=== PATIENT | male | born 1975 | race Caucasian/White ===

== ENCOUNTER 2017-03-31 16:13 | Emergency (ER) | payer OTHER, SELFPAY ==
[2017-03-31 16:14] VITALS: BP 141/97; PULSE 125; RESP 16; TEMP 37.1; O2SAT 98; BMI 24.9
--- NOTE | 2017-03-31 16:37 | RAD_ITS ---
STUDY: X-RAY - LEFT HAND REASON FOR EXAM: Male, 41 years old. Laceration TECHNIQUE: Three view(s) of the hand. COMPARISON: None. FINDINGS: Bones: There are no acute osseous abnormalities. Joints: The visualized joints are unremarkable. Soft tissues: A discrete soft tissue defect is not visualized. Foreign body: None RAD/Hand Min 3 Views IMPRESSION: There is no evidence of osseous involvement or radiopaque foreign body. Electronically Signed: Lillian Cazares MD at 17:16 EST Tel Direct: [phone], Service support ,
--- NOTE | 2017-03-31 16:39 | ED.DCSUM_ITS ---
- ER Visit Summary Date of Service: 03/31/17 Chief Complaint: [] Right hand laceration after punching car glass window History of Present Illness: The patient is a 41 M [] hdhbq-[id number]-gubkepux tetanus status up-to-date he punched a car glass window suffered laceration to the palm of the right hand, no loss of function no foreign body sensation no other complaints Physical Examination: [] Annual exams unremarkable he indicates he is very sensitive to the site of blood and pain it causes him to pass out he has an obvious curvilinear laceration to the right palmar hand., Approximately 4 cm, finger function and tendon function completely normal sensation normal MCP PIP DIP flexion extension and isolated completely intact all digits thumb function normal, the laceration was copiously irrigated, local anesthetic, no foreign bodies are appreciated, X-rays confirm no signs of obvious foreign body, I could not see any foreign bodies on inspection and the laceration was closed with nylon with good results he was instructed on wound care bulky hand dressing he will follow-up with his primary care doctor or was to orthopedics for further management and return for change in symptoms Test Results: [] Emergency Department Course and Treatment: [] Treatment Plan: [] Disposition: [] Home stable Impression: [] 4 centimeter right hand laceration This note was generated with [employer] dictation software. It may contain incorrect words, spelling, and punctuation that were not noted in review of the chart prior to signing ED Disposition - Plan for ED Patient: Chief Complaint: Laceration Instructions: ED Laceration All, ED Laceration Hand Referrals: Yunior Hayden MD [STAFF PHYSICIAN] - [facility] Doctor,Out of [Primary Care Provider] -
--- NOTE | 2017-03-31 16:39 | ED.DEP ---
ED Disposition - Plan for ED Patient: Chief Complaint: Laceration Instructions: ED Laceration All, ED Laceration Hand Referrals: [facility] Doctor,Out of [Primary Care Provider] - Yunior Hayden MD [STAFF PHYSICIAN] -
--- NOTE | 2017-03-31 16:49 | RAD_ITS ---
STUDY: X-RAY - RIGHT HAND REASON FOR EXAM: Male, 41 years old. Laceration TECHNIQUE: Three view(s) of the hand. COMPARISON: None. FINDINGS: Bones: There are no acute osseous abnormalities. Joints: The visualized joints are unremarkable. Soft tissues: There is a soft tissue defect along the palmar aspect of the hand at the level of the distal second metacarpal. Foreign body: None RAD/Hand Min 3 Views IMPRESSION: There is no evidence of osseous involvement or radiopaque foreign body. Electronically Signed: Lillian Cazares MD at 17:14 EST Tel Direct: [phone], Service support ,
[2017-03-31 17:29] VITALS: PULSE 79; RESP 16; O2SAT 100
--- NOTE | 2017-03-31 17:29 | ED.RN ---
TELFA AND GAUZE WRAP APPLIED TO RIGHT HAND. REVIEWED D/C INSTRUCTIONS, FOLLOW UP CARE, AND S/S THAT WOULD WARRANT A RETURN TO THE ED WITH PT. PT VERBALIZED AN UNDERSTANDING AND DENIES FURTHER QUESTIONS FOR THIS RN. PT SKIN P/W/D, RESP EVEN AND UNLABORED, PT A&O X 3, NO DISTRESS NOTED. PT AMBULATED OUT OF ED, GAIT STEADY.
== END 2017-03-31 17:35 | disposition home or self-care (01) ==
LOC: ED 17:29
PROVIDERS: Emergency Provider Emergency Medicine
DX: S61.411A Laceration without foreign body of right hand, initial encounter (principal); W22.8XXA Striking against or struck by other objects, initial encounter; Y93.89 Activity, other specified; Y92.9 Unspecified place or not applicable
CPT/HCPCS: 12002; 73130; 99283

== ENCOUNTER → 2019-06-21 | Outpatient (CLI) | payer OTHER, SELFPAY | END | disposition home or self-care (01) | LOC: LABSPEC 13:10 | PROVIDERS: Referring Provider Family Medicine; Visit Provider Family Medicine | DX: Z20.828 Contact with and (suspected) exposure to other viral communicable diseases (principal) | CPT/HCPCS: 87635; G2023; U0004 ==

== ENCOUNTER 2023-10-04 06:29 | Day surgery (SDC) | payer OTHER, SELFPAY ==
[2023-10-04] VITALS (8 sets, daily range): BP systolic 112–154; BP diastolic 74–95; PULSE 68–77; RESP 16–20; TEMP 36.4–36.8; O2SAT 95–100; BMI 23.2
[2023-10-04] MEDS: Lactated Ringers 1,000 ML 15 ML IV (06:58)
--- NOTE | 2023-10-04 07:13 | H&P.OPEN ---
HPI - General General Date of Service: 10/04/23 HPI Narrative KEV PITT, is a 48 M who presents for an EGD and colonoscopy. Patient states he has had reflux occasionally for a couple of days on the medication. Patient's has been having a little more looser bowel movements than solid but does have some solid bowel movements. office visit 07/14/23 HPI HPI: 47-year-old male presents for EGD and colonoscopy. Patient states [place] has already approved both and sent the moviprep to him. Patient is never had previous colonoscopy denies any family history of colon cancer. Patient states he has bowel movements daily denies any blood. Patient does state he has reflux 3-4 times a week and does have sounds like Dexilant for the last 1 to 2 years however he only takes it as needed and not daily. Patient's last EGD was in 2015 through the [place]. [facility] Medical History History of tuberculosis Loss of hearing Wears glasses Ambulates with cane Back pain Injury of head and neck Migraine headache Blackout Difficulty chewing History of IBS Gastric reflux Former smoker Hoarseness Anxiety Depression Arthritis Home Medications ?Medication ?Instructions ?Recorded ?Last Taken ?Type bupropion HCl 300 mg 24 hr tablet, 300 mg PO DAILY 03/31/17 Unknown History extended release dextroamphetamine-amphetamine ER 15 mg PO DAILY 03/31/17 Unknown History 15 mg 24hr capsule,extend release (Adderall XR) doxycycline hyclate 100 mg tablet 100 mg PO DAILY 09/06/23 Unknown History omeprazole 20 mg capsule,delayed 20 mg PO BID GERD 09/06/23 Unknown History release sildenafil 50 mg tablet 50 mg PO DAILY PRN sexual activity 09/06/23 Unknown History Allergy/AdvReac Type Severity Reaction Status Date / Time No Known Allergies Allergy Verified 10/04/23 06:46 Surgical History H/O eye surgery H/O foot surgery Social History Smoking Status: Former smoker substance use type: does not use Past Medical/Surgical History Planned Operation Planned Operative Procedure(s): Colonoscopy,EGD Previous Hospitalizations/Surgeries HX Hospitalizations: No Any Problems With Anesthesia: No You/Your Family Experience Fever (Hyperthermia) With Anes: No Cholinesterase deficiency: No Cardiovascular Hx Hypertension: No Respiratory Hx Sleep Apnea: Yes (HAS EXTERNAL DEVICE TO WEAR ON CHEST, DOESN'T WEAR OFTEN) CPAP: No BIPAP: No Hx Respiratory Tract Infection/Cold (presently): No Result (for STOP score): Positive Smoking Status: Former smoker Neurological Does patient have nerve stimulator: No Reproduction : No Psycho/Social Hx Anxiety: Yes (PTSD) Hx Depression: Yes Miscellaneous Recent Exposure to Contagious Disease: No Allergies No Known Allergies Allergy (Verified 10/04/23 06:46) Discharge Is Pt Admitted From a Snf, or a Prison: No Who Could Help: FRIEND After D/C, Where Do you Plan to Go: Return Home Vital Signs Vital Signs Vital Signs: 10/04/23 06:47 10/04/23 06:47 Temperature 97.5 F L Temperature Source Temporal Pulse Rate 77 Respiratory Rate 16 Respiratory Pattern Normal Blood Pressure 154/95 H Blood Pressure Mean 114 Blood Pressure Source Monitor Blood Pressure Position Semi-Fowlers Blood Pressure Location Right Arm Pulse Ox 100 Oxygen Delivery Method Room Air Weight Weight: 176 lb 2.389 oz Body Mass Index (BMI) 23.2 Physical Exam Const alert, oriented x3 and no apparent distress HEENT normocephalic and head/scalp atraumatic Resp normal respiratory effort Cardio regular rate GI soft to palpation and non-tender; Negative for non-distended Palpation: Negative for guarding Extremity no clubbing, cyanosis or edema Skin no rashes or lesions noted Neuro CN's II-XII intact bilaterally Psych mental status grossly normal Assessment & Plan Assessment/Plan (1) GERD (gastroesophageal reflux disease): (2) Encounter for screening colonoscopy: Surgery Risks - Colonoscopy I discussed with the patient the risks of the procedure: Yes Risks Include but are not Limited To: Plan for EGD and colonoscopy Risks include but are not limited to: Bleeding, perforation requiring further surgery, inability to complete colonoscopy requiring barium enema.
--- NOTE | 2023-10-04 07:14 | PCM.PRE.AN2 ---
ASA Classification* ASA Classification ASA Classification: 2 Assessment & Plan Anesthesia* Anesthesia Assessment Anesthesia Assessment: Discussed sedation and/or anesthesia options, risks, benefits, and alternatives with patient/parents/legal guardian/POA. Questions invited. The patient/parents/legal guardian/POA seems to understand and agrees to proceed with anesthesia plan. Reviewed the physical assessment, medical history, allergy history and patient home medications list prior to surgery/procedure/anesthetic and documented any changes. Performed airway and anesthesia risk assessments. 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 When Was Last Pacemaker Check QUESTION #4 FULL TEXT: You/Your Family Experience fever (hyperthermia) with Anesthesia Last Oral Intake Last Oral intake: Last Oral Intake NPO since 23:00 10/04/23 06:47 Meds taken in AM with sips of No 10/04/23 06:47 water? Meds patient instructed to take am of surgery PONV PONV - instructional support technician: PONV - instructional support technician Female No 09/06/23 13:40 HX of Motion Sickness No 09/06/23 13:40 HX of N/V After Surgery No 09/06/23 13:40 Non-Smoker Yes 09/06/23 13:40 Duration of Surgery greater No 09/06/23 13:40 than 60 minutes Number of Risk Factors 1 07/09/24 13:40 PONV Score Low Risk 09/06/23 13:40 Height & Weight Height & Weight: Anesthesia: Height & Weight Height 6 ft 1 in 10/04/23 06:47 Weight: 79.9 kg 10/04/23 06:47 Body Mass Index (BMI) 23.2 10/04/23 06:47 Respiratory Assessment Respiratory Assessment - instructional support technician: Respiratory Tract Infection Hx - instructional support technician Hx Respiratory Tract Infection No 10/04/23 07:14 STOP Sleep Apnea STOP Sleep Apnea - instructional support technician: STOP Sleep Apnea - instructional support technician Hx Hypertension No 10/04/23 07:14 Hx Sleep Apnea Yes: HAS EXTERNAL DEVICE TO 10/04/23 07:14 WEAR ON CHEST, DOESN'T WEAR OFTEN CPAP No 10/04/23 07:14 BIPAP No 10/04/23 07:14 Do you snore loudly (louder than talking or can be heard Do you often feel tired/ fatigued/ sleepy during daytime? Has anyone observed you stop breathing during sleep? STOP Results Positive 10/04/23 07:14 QUESTION #5 FULL TEXT : Do you snore loudly (louder than talking or can be heard through closed doors)? 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 Specify any problems Hx of Preganancy in last 3 N/A 09/06/23 13:40 Months Nurse Filling Out Transfusion & Questions: Date: Time: Patient unable to answer at this time (ie. confused, unrespo /Reproduction History /Reproductive History - instructional support technician: /Reproductive Hx- instructional support technician Hx Now No 10/04/23 07:14 Gestational Age (in weeks): EDC: Hx Hx Para Hx Section SAB No 09/06/23 13:40 Active Medications Active Medications: Current Medications Generic Name Dose Route Start Last Admin Trade Name Freq PRN Reason Stop Dose Admin Lactated Ringer's 1,000 mls @ 15 mls/hr 10/04/23 06:45 10/04/23 06:58 IV 15 mls/hr .Q48H SHAQ Administration PFSH Medical History History of tuberculosis Loss of hearing Wears glasses Ambulates with cane Back pain Injury of head and neck Migraine headache Blackout Difficulty chewing History of IBS Gastric reflux Former smoker Hoarseness Anxiety Depression Arthritis Home Medications ?Medication ?Instructions ?Recorded ?Last Taken ?Type bupropion HCl 300 mg 24 hr tablet, 300 mg PO DAILY 03/31/17 Unknown History extended release dextroamphetamine-amphetamine ER 15 mg PO DAILY 03/31/17 Unknown History 15 mg 24hr capsule,extend release (Adderall XR) doxycycline hyclate 100 mg tablet 100 mg PO DAILY 09/06/23 Unknown History omeprazole 20 mg capsule,delayed 20 mg PO BID GERD 09/06/23 Unknown History release sildenafil 50 mg tablet 50 mg PO DAILY PRN sexual activity 09/06/23 Unknown History Allergy/AdvReac Type Severity Reaction Status Date / Time No Known Allergies Allergy Verified 10/04/23 06:46 Surgical History H/O eye surgery H/O foot surgery Social History Smoking Status: Former smoker substance use type: does not use Review of Systems (Anesthesia) ROS Narrative System reviewed and no additional complaints, except as documented.
--- NOTE | 2023-10-04 07:30 | EGD_PTH ---
PATIENT: KEV PITT LOC: [facility] U#:[id number] AGE/SX: 48/M ROOM: RE10/04/[address]: Dr. Kaylan Gallardo MD : 1975 BED: DIS: 10/04/2023 SPEC #: [id number] RECD: 10/04/23 13:27 STATUS: REMY EVIE #: [id number] ALLI: 10/04/23 07:[address]: Kaylan Gallardo DEPT: SURGICAL PATHOLOGY RECD BY: Amanda Ruiz ENTERED: 10/05/23 07:26 SP TYPE: EGD BIOPSY CRISSY DR: [facility] Tissues: A - Gastric mucous membrane B - Esophagus, NOS Procedures: Special Stain Group I Surgery Specimen Level IV Alcian Blue/PAS (control) HEADER OPERATION: Colonoscopy, EGD PRE-OP DIAGNOSIS: GERD, encounter for screening colonoscopy TISSUE SUBMITTED: A- Antrum biopsy, B- Gastroesophageal junction biopsy MICROSCOPIC DIAGNOSIS A. Gastric antrum, biopsy: Mild chronic gastritis. See comment. B. Gastroesophageal junction, biopsy: Squamous mucosa with focal changes of reflux. No evidence of goblet cell metaplasia. See comment. CATERINA/ 10/06/2023 COMMENT A. The results of immunohistochemistry for Helicobacter pylori will be reported separately ([id number]). B. Alcian blue/PAS stain with matched control supports the above diagnosis. MICROSCOPIC DESCRIPTION Slides are reviewed. GROSS DESCRIPTION A. Received in fixative is one container labeled with the patient's name and designated Antrum biopsy. The specimen consists of one irregular fragment of light quevedo soft tissue that measures 0.5 x 0.3 x 0.1 cm. The specimen is totally submitted in one cassette. B. Received in fixative is one container labeled with the patient's name and designated GE junction biopsy. The specimen consists of one irregular fragment of light quevedo soft tissue that measures 0.3 x 0.3 x 0.1 cm. The specimen is totally submitted in one cassette. TOYA/ 10/05/2023 TC:3 CPT: 67778z5,17395
--- NOTE | 2023-10-04 07:30 | IMM_PTH ---
PATIENT: KEV PITT LOC: [facility] U#:[id number] AGE/SX: 48/M ROOM: RE10/04/[address]: Dr. Kaylan Gallardo MD : 1975 BED: DIS: 10/04/2023 SPEC #: [id number] RECD: 10/05/23 08:56 STATUS: REMY EVIE #: [id number] ALLI: 10/04/23 07:[address]: Kaylan Gallardo DEPT: IMMUNOHISTOCHEMISTRY RECD BY: Johny Figueredo ENTERED: 10/05/23 08:56 SP TYPE: IMMUNO OTHR DR: [facility] Tissues: A - Gastric mucous membrane Procedures: H Pylori (initial) PHYSICIAN & INSTITUTION [place] [id number] SPECIMEN INFORMATION: Tissue Source: A- Antrum biopsy Clinical Info: GERD, encounter for screening colonoscopy Specimen Number: [id number] CPT code: 02922 METHODOLOGY: Deparaffinized sections of prefer/formalin-fixed tissue or PAP/DQ stained slides are incubated with monoclonal/polyclonal antibodies/oligonucleotide probes. Localization is made via biotin free immunoperoxidase method. Appropriate controls are performed and reacted as expected. Results on target cell population are indicated in the following table: RESULTS: ANTIBODY / CLONE RESULT Block A H Pylori (polyclonal) negative These tests were developed and their performance characteristics determined by [facility]. They may not have been cleared or approved by the U.S. Food and Drug Administration. The FDA has determined that such clearance or approval is not necessary. The above immunohistochemical/dualISH markers are ordered and reviewed by the Pathologist. INTERPRETATION: A. Antrum, biopsy: Negative for Helicobacter pylori organisms. CATERINA/ 10/06/2023
--- NOTE | 2023-10-04 07:53 | OP.EGD_ITS ---
Patient Name: Gera Kasper Procedure Date: 10/04/2023 6:46 AM Date of : 1975 Age: 48 Procedure: Upper GI endoscopy Indications: Heartburn Providers: Kaylan Gallardo MD Referring MD: Kaylan Gallardo MD Medicines: Monitored Anesthesia Care Patient Profile: This is a 48 year old male. Complications: No immediate complications. Procedure: Pre-Anesthesia Assessment: - Prior to the procedure, a History and Physical was performed, and patient medications and allergies were reviewed. The patient's tolerance of previous anesthesia was also reviewed. The risks and benefits of the procedure and the sedation options and risks were discussed with the patient. All questions were answered, and informed consent was obtained. Prior Anticoagulants: The patient has taken no anticoagulant or antiplatelet agents. ASA Grade Assessment: Per anesthesia. After reviewing the risks and benefits, the patient was deemed in satisfactory condition to undergo the procedure. After obtaining informed consent, the endoscope was passed under direct vision. Throughout the procedure, the patient's blood pressure, pulse, and oxygen saturations were monitored continuously. The Colonoscope was introduced through the mouth, and advanced to the second part of duodenum. The upper GI endoscopy was accomplished without difficulty. The patient tolerated the procedure well. Scope In: 7:29:16 AM Scope Out: 7:33:36 AM Total Procedure Duration Time 0 hours 4 minutes 20 seconds Findings: The Z-line was irregular and was found 40 cm from the incisors. Biopsies were taken with a cold forceps for histology. Mildly erythematous mucosa without bleeding was found in the gastric antrum. Biopsies were taken with a cold forceps for histology. Biopsies were taken with a cold forceps for Helicobacter pylori cultures. The examined duodenum was normal. The cardia and gastric fundus were normal on retroflexion. Impression: - Z-line irregular, 40 cm from the incisors. Biopsied. - Erythematous mucosa in the antrum. Biopsied. - Normal examined duodenum. Recommendation: - Discharge patient to home. - Resume previous diet. - Continue present medications. - Await pathology results. Procedure Code(s): --- Professional --- 67261, PT, Esophagogastroduodenoscopy, flexible, transoral; with biopsy, single or multiple Diagnosis Code(s): --- Professional --- K22.89, Other specified disease of esophagus K31.89, Other diseases of stomach and duodenum R12, Heartburn CPT copyright 2021 [employer]. All rights reserved. The codes documented in this report are preliminary and upon rn family review may be revised to meet current compliance requirements. MD Kaylan Navas MD 10/04/2023 7:52:48 AM This report has been signed electronically. Number of Addenda: 0 Note Initiated On: 10/04/2023 6:46 AM
--- NOTE | 2023-10-04 07:53 | OP.CCLET_ITS ---
10/04/2023 [facility] Re : Upper GI endoscopy procedure for [facility] This procedure was performed on Wednesday, October 04, 2023. My impressions and recommendations are as follows: Impressions : - Z-line irregular, 40 cm from the incisors. Biopsied. - Erythematous mucosa in the antrum. Biopsied. - Normal examined duodenum. Recommendations : - Discharge patient to home. - Resume previous diet. - Continue present medications. - Await pathology results. My findings are described in the full procedure note, which is enclosed. If I can be of further assistance, please feel free to contact me at Doctor phone number(s): , Work: . Sincerely, MD Kaylan Navas MD 10/04/2023 7:52:48 AM This report has been signed electronically.
--- NOTE | 2023-10-04 07:54 | OP.COLON_ITS ---
Patient Name: Gera Kasper Procedure Date: 10/04/2023 7:33 AM Date of : 1975 Age: 48 Procedure: Colonoscopy Indications: Screening for colorectal malignant neoplasm Providers: Kaylan Gallardo MD Referring MD: Kaylan Gallardo MD Medicines: Monitored Anesthesia Care Patient Profile: This is a 48 year old male. Last Colonoscopy: none. The patient's first colonoscopy is today. Complications: No immediate complications. Procedure: Pre-Anesthesia Assessment: - Prior to the procedure, a History and Physical was performed, and patient medications and allergies were reviewed. The patient's tolerance of previous anesthesia was also reviewed. The risks and benefits of the procedure and the sedation options and risks were discussed with the patient. All questions were answered, and informed consent was obtained. Prior Anticoagulants: The patient has taken no anticoagulant or antiplatelet agents. ASA Grade Assessment: Per anesthesia. After reviewing the risks and benefits, the patient was deemed in satisfactory condition to undergo the procedure. After I obtained informed consent, the scope was passed under direct vision. Throughout the procedure, the patient's blood pressure, pulse, and oxygen saturations were monitored continuously. The Colonoscope was introduced through the anus and advanced to the cecum, identified by the appendiceal orifice, ileocecal valve and palpation. The colonoscopy was performed without difficulty. The patient tolerated the procedure well. The quality of the bowel preparation was good. Scope In: 7:34:53 AM Scope Withdrawal Time 0 hours 8 minutes 12 seconds Scope Out: 7:48:10 AM Total Procedure Duration Time 0 hours 13 minutes 17 seconds Findings: The perianal and digital rectal examinations were normal. The entire examined colon appeared normal on direct and retroflexion views. Impression: - The entire examined colon is normal on direct and retroflexion views. - No specimens collected. Recommendation: - Discharge patient to home. - Resume previous diet. - Continue present medications. - Repeat colonoscopy in 10 years for screening purposes. Procedure Code(s): --- Professional --- G0121, PT, Colorectal cancer screening; colonoscopy on individual not meeting criteria for high risk Diagnosis Code(s): --- Professional --- Z12.11, Encounter for screening for malignant neoplasm of colon CPT copyright 2021 [employer]. All rights reserved. The codes documented in this report are preliminary and upon larriman review may be revised to meet current compliance requirements. MD Kaylan Navas MD 10/04/2023 7:54:23 AM This report has been signed electronically. Number of Addenda: 0 Note Initiated On: 10/04/2023 7:33 AM
--- NOTE | 2023-10-04 07:55 | OP.CCLET_ITS ---
10/04/2023 [facility] Re : Colonoscopy procedure for [facility] This procedure was performed on Wednesday, October 04, 2023. My impressions and recommendations are as follows: Impressions : - The entire examined colon is normal on direct and retroflexion views. - No specimens collected. Recommendations : - Discharge patient to home. - Resume previous diet. - Continue present medications. - Repeat colonoscopy in 10 years for screening purposes. My findings are described in the full procedure note, which is enclosed. If I can be of further assistance, please feel free to contact me at Doctor phone number(s): , Work: . Sincerely, MD Kaylan Navas MD 10/04/2023 7:54:23 AM This report has been signed electronically.
--- NOTE | 2023-10-04 07:58 | PCM.POST.ANE ---
Anesthesia: Postop Eval I Current Vital Signs Temperature: 98.2 F Pulse Rate: 75 Blood Pressure: 113/74 Respiratory Rate: 20 Pulse Ox: 95 Oxygen Delivery Method: Room Air Assessment Airway patent: Yes Spontaneous unlabored respirations: Yes Mental status: Asleep nausea: No Vomiting: No Anesthesia Complication: No Fluid Hydration Crystalloid volume administer (ml): 400 Total IV fluid infused: 400 Progress Note Anesthesia document: Postop Eval 1 completed: Yes
--- NOTE | 2023-10-04 08:08 | POSTOPAN2_ITS ---
Anesthesia Postop Eval I Sum Postop Eval Completion status Anesthesia document: Postop Eval 1 completed: Yes Anesthesia Postop Eval I Summary Anesthesia Postop Eval I Summary: Anesthesia Postop Eval I: Assessment Summary Airway patent Yes 10/04/23 07:59 [email or web address] Spontaneous unlabored Yes 10/04/23 07:59 [email or web address] respirations Mental status Asleep 10/04/23 07:59 [email or web address] nausea No 10/04/23 07:59 [email or web address] Vomiting No 10/04/23 07:59 [email or web address] Anesthesia Postop Eval I: Fluid Summary Crystalloid volume administer 400 10/04/23 07:59 [email or web address] (ml) Colloids volume administered ( ml) Blood Product volume administered (ml) Total IV fluid infused 400 10/04/23 07:59 [email or web address] Anesthesia Postop Eval I: Summary Notes Anesthesia Complication No 10/04/23 07:59 [email or web address] Anesthesia Complication Comment: Post-operative progress note Anesthesia: Postop Eval II Evaluation Mental status: Awake Pain Level: 0 nausea: No Vomiting: No
--- NOTE | 2023-10-04 08:08 | PCM.POSTANE2 ---
Anesthesia Postop Eval I Sum Postop Eval Completion status Anesthesia document: Postop Eval 1 completed: Yes Anesthesia Postop Eval I Summary Anesthesia Postop Eval I Summary: Anesthesia Postop Eval I: Assessment Summary Airway patent Yes 10/04/23 07:59 [email or web address] Spontaneous unlabored Yes 10/04/23 07:59 [email or web address] respirations Mental status Asleep 10/04/23 07:59 [email or web address] nausea No 10/04/23 07:59 [email or web address] Vomiting No 10/04/23 07:59 [email or web address] Anesthesia Postop Eval I: Fluid Summary Crystalloid volume administer 400 10/04/23 07:59 [email or web address] (ml) Colloids volume administered ( ml) Blood Product volume administered (ml) Total IV fluid infused 400 10/04/23 07:59 [email or web address] Anesthesia Postop Eval I: Summary Notes Anesthesia Complication No 10/04/23 07:59 [email or web address] Anesthesia Complication Comment: Post-operative progress note Anesthesia: Postop Eval II Evaluation Mental status: Awake Pain Level: 0 nausea: No Vomiting: No
== END 2023-10-04 08:35 | disposition home or self-care (01) ==
LOC: EN 06:31 → AC 06:32
PROVIDERS: Visit Provider Surgery
PROC: 0DJD8ZZ Inspection of Lower Intestinal Tract, Via Natural or Artificial Opening Endoscopic (ICD-10-PCS; CPT 45378; principal; 2023-10-04 07:25)
DX: Z12.11 Encounter for screening for malignant neoplasm of colon (principal); K21.9 Gastro-esophageal reflux disease without esophagitis; Z87.891 Personal history of nicotine dependence; Z79.899 Other long term (current) drug therapy; F32.A Depression, unspecified; K22.89 Other specified disease of esophagus
CPT/HCPCS: 45378; 43239; 88305; 88312; 88342; J7120; J2405

== ENCOUNTER 2024-01-17 07:08 | Emergency (ER) | payer OTHER, SELFPAY ==
[2024-01-17 07:08] VITALS: BP 102/74; PULSE 85; RESP 17; TEMP 36.5; O2SAT 100; BMI 22.1
--- NOTE | 2024-01-17 07:16 | EKG12_ITS ---
Test Reason : Blood Pressure : */* mmHG Vent. Rate : 87 BPM Atrial Rate : 87 BPM P-R Int : 116 ms QRS Dur : 92 ms QT Int : 376 ms P-R-T Axes : 34 57 42 degrees QTcB Int : 452 ms Normal sinus rhythm Normal ECG Confirmed by JAIDEN BERGER, NICOLE ([id number]), visual effects editor LISA FIGUEROA ([id number]) on 01/17/2024 1:55:20 PM Referred By: Confirmed By: NICOLE HWANG MD
--- NOTE | 2024-01-17 07:31 | ED.RN ---
rapid breathing, anxious restless, hyperventilation. states darrel feet are tingling. encouraged slow deep breathing.
[2024-01-17 07:55] LABS: Troponin-I HS 7 pg/mL (3.0-78.0)
[2024-01-17 08:08] VITALS: BP 119/91; PULSE 94; RESP 18; O2SAT 97
--- NOTE | 2024-01-17 08:09 | EX.ED.DYSGE1 ---
HPI History of Present Illness Chief Complaint: Chest Pain Detail of Chief Complaint: Sickle episode and chest pain Informant: patient and spouse/S.O. Onset/Context/Timing Onset: Today (With regards to the single episode) and Days (Onset Tuesday regarding chest pain) Timing: Continuous (Regarding chest pain) and Intermittent (Regarding syncope) Quality: Patient was at school when he had a syncopal episode. Chest pain has been Location: Left anterior chest below nipple Current Severity: Mild Maximum Severity: Moderate Worsened by: Nothing Relieved by: Nothing Associated Symptoms Associated Symptoms: Shortness of breath Narrative Narrative: Patient is a 48-year-old male with history of ADHD, GERD who had a syncopal episode. Took child to school. Passed out. He was warm, pale, diaphoretic prior to passing out. Passed out in the past. He denies headache, visual, ocular auditory symptoms. He has had chest pain since Tuesday. He has no known coronary disease. Grandmother had cardiac disease. Does not know age of onset. He has no risk factors for coronary disease. He denies black or maroon-colored stool. He denies nausea, vomiting or diarrhea. He has no other complaints. Prior similar symptoms: Yes (Regarding syncope not chest pain) Recent Illness/Hospitalization: No PFSH PFSH Medical History History of tuberculosis Loss of hearing Wears glasses Ambulates with cane Back pain Injury of head and neck Migraine headache Blackout Difficulty chewing History of IBS Gastric reflux Former smoker Hoarseness Anxiety Depression Arthritis Home Medications ?Medication ?Instructions ?Recorded ?Last Taken ?Type bupropion HCl 300 mg 24 hr tablet, 300 mg PO DAILY 03/31/17 Unknown History extended release dextroamphetamine-amphetamine ER 15 mg PO DAILY 03/31/17 Unknown History 15 mg 24hr capsule,extend release (Adderall XR) doxycycline hyclate 100 mg tablet 100 mg PO DAILY 09/06/23 Unknown History omeprazole 20 mg capsule,delayed 20 mg PO BID GERD 09/06/23 Unknown History release sildenafil 50 mg tablet 50 mg PO DAILY PRN sexual activity 09/06/23 Unknown History Allergy/AdvReac Type Severity Reaction Status Date / Time No Known Allergies Allergy Verified 01/17/24 07:13 Surgical History H/O eye surgery H/O foot surgery Social History (Updated 01/17/24 @ 08:[address] Hermelindo Sterling MD) household members: spouse and children Smoking Status: Former smoker substance use type: does not use ROS ROS ED Constitutional Constitutional ED: Denies chills, fever(s), subjective or sweats Eyes Eyes: Reports blurry vision bilateral (Prior to passing out); Denies change in vision or diplopia ENT ENT ED: Denies ear pain, rhinorrhea or sore throat Cardiovascular Cardiovascular: Reports chest pain; Denies palpitations or racing heartbeat Respiratory/Chest Respiratory/Chest: Denies cough, dyspnea or dyspnea on exertion Gastrointestinal Gastrointestinal: Denies abdominal pain, constipation, diarrhea, melena, nausea or vomiting Musculoskeletal Musculoskeletal: Denies arthralgias or myalgias Integumentary Denies rash Neurologic Neurologic: Denies headache(s) or paresthesias Psychiatric Psychiatric: Reports anxiety Endocrine Endocrinology: Denies cold intolerance or heat intolerance Hematologic/Lymphatic Hematologic/Lymphatic: Reports systems reviewed and no addt'l complaints, except as documented EXAM Physical Exam Const Vital Signs: 01/17/24 07:08 01/17/24 08:08 Temperature 97.7 F L Temperature Source Axillary Pulse Rate 85 94 Respiratory Rate 17 18 Blood Pressure 102/74 119/91 H Blood Pressure Mean 83 100 Pulse Ox 100 97 Oxygen Delivery Method Room Air Room Air Positive well nourished and well developed Constitutional Narrative: . Chin is supine. There was absolutely no eye contact during the entire history and physical. Patient was crying. was at bedside attending to his needs. General Appearance ED: well developed; Negative for cyanotic, diaphoretic or pallor HEENT Reports moist mucous membranes HEENT Narrative: Head is atraumatic no cephalic. Ears normal. Nares patent. Eyes PERRL and EOMs intact bilaterally General Eye ED: Negative for pale conjunctiva or scleral icterus Neck no lymphadenopathy, supple and no JVD Chest Wall inspection of chest normal and palpation of chest normal Resp normal respiratory effort and clear to auscultation bilaterally Cardio regular rate, regular rhythm, S1 normal heart sound, S2 normal heart sound and no murmurs GI normal to inspection, nondistended, normoactive bowel sounds, non-tender, non-distended and no masses; Negative for hepatosplenomegaly Neuro oriented x3 and CN's II-XII intact bilaterally Neuro Narrative: Moves all extremities. Sensorium / Orientation: alert Psych Psych Narrative: Affect is flat Mood & Affect: depressed and tearful Skin no rashes or lesions noted, no wounds and skin turgor normal General Skin Exam: Negative for jaundice or pallor MDM MDM MDM Narrative Medical decision making narrative: History of chest pain and syncopal episode will obtain EKG and troponin. Patient sickle episode based on history and physical is a vasovagal event. No further workup is needed regarding this symptom at this time. Since patient had this in the past we will inquire if he is ever had a table tilt test. Differential diagnosis is cardiac versus noncardiac chest pain. Noncardiac chest pain with includes musculoskeletal, pulmonary, GI and specifically reflux, doubt pancreatitis since there is no tenderness in the left upper quadrant and there is no history of alcohol use. Doubt GI bleed since he does not appear pale and denied black or maroon-colored stool. History & Record Review Additional record(s) reviewed:: Prior outpatient record (Outpatient encounter with Dr. Linares for colonoscopy. This was in September of this year. Last ER visit was March 2017 for laceration) Lab Data Attestation: I reviewed the patient's lab results. Lab results narrative: With a normal chest x-ray and troponin of 7 with symptoms for greater than 48 hours cardiac etiology has been ruled out. Labs: Laboratory Results - last 24 hr 01/17/24 07:25 Troponin I High Sens 7 Rhythm Strip Rhythm Strip: Sinus Rhythm Rate: 88 Ectopy: None EKG Initial EKG: Attestation: I personally reviewed and interpreted this EKG as follows: Interpretation: Sinus Rhythm (EKG is normal. Rate is 87. MS interval is under 60 ms. QS duration 92 ms. QT durations under 770 ms. Headrick is normal.) Discharge Plan Triage Chief Complaint: Chest Pain ED Provider: Hermelindo Sterling Dx/Rx/DC Orders Clinical Impression: Left-sided chest pain, Syncope, vasovagal Instructions: ED Chest Pain, Noncardiac, ED Chest Pain, Uncertain Cause, ED Fainting, Vagal Reaction Prescriptions: No Action dextroamphetamine-amphetamine [Adderall XR] 15 MG capsule,extended release 24hr 15 mg PO DAILY Patient Comments: bupropion HCl 300 MG tablet extended release 24 hr 300 mg PO DAILY omeprazole 20 mg capsule,delayed release(DR/EC) 20 mg PO BID doxycycline hyclate 100 mg tablet 100 mg PO DAILY sildenafil 50 mg tablet 50 mg PO DAILY PRN (Reason: sexual activity) Rx Instructions: administer 30 minutes to 4 hours before activity [facility] [Primary Care Provider] - 1-2 Weeks Activity Restrictions/Additional Instructions: If you have not had a table tilt test in the past you may want to discuss this with your doctor at the [place]. Print Language: Upper Sorbian Disposition Disposition: Home, Self Care
[2024-01-17 09:00] VITALS: BP 122/72; PULSE 64; RESP 16; O2SAT 99
== END 2024-01-17 09:00 | disposition home or self-care (01) ==
PROVIDERS: Emergency Provider Emergency Medicine; Visit Provider Emergency Medicine
DX: R07.9 Chest pain, unspecified (principal); R55 Syncope and collapse; Z87.891 Personal history of nicotine dependence
CPT/HCPCS: 84484; 93005; 99283; A4216